=== PATIENT | female | born 1985 | race Caucasian/White ===

== ENCOUNTER 2021-10-18 06:55 | Emergency (ER) | payer OTHER, SELFPAY ==
[2021-10-18 07:00] VITALS: BP 119/97; PULSE 86; RESP 18; TEMP 36.2; O2SAT 100; BMI 33.4
--- NOTE | 2021-10-18 07:20 | EKG12_ITS ---
Test Reason : SYNCOPE Blood Pressure : / mmHG Vent. Rate : 081 BPM Atrial Rate : 081 BPM P-R Int : 160 ms QRS Dur : 084 ms QT Int : 378 ms P-R-T Axes : 008 018 009 degrees QTc Int : 439 ms Normal sinus rhythm Normal ECG Confirmed by KAIDEN BOOTH MD ([id number]), editor book JUNIOR ACOSTA ([id number]) on 10/22/2021 10:59:57 AM Referred By: TL Confirmed By:KAIDEN BOOTH MD
--- NOTE | 2021-10-18 07:20 | CT_ITS ---
STUDY: CT BRAIN WITHOUT CONTRAST REASON FOR EXAM: Female, 36 years old. Head injury following a syncopal episode. RADIATION DOSAGE (If Supplied By Facility): CTDIvol = ( 44.99 ) mGy, DLP = ( 745.49 ) mGycm TECHNIQUE: Transaxial CT imaging of the brain was performed without administration of intravenous contrast material. Individualized dose optimization techniques were used for this CT. COMPARISON: No relevant priors. FINDINGS: Normal soft tissue structures. There is a small scalp hematoma overlying the right frontal Normal size ventricles and extra-axial spaces for the patient''s age. Normal white matter tracts of the cerebral hemispheres. Normal basal ganglia and thalami. Normal brainstem. Normal cerebellum. There is no intracranial hemorrhage. There are no findings of an acute ischemic infarction. Normal visualized paranasal sinuses. CT/Brain/Head without Contrast IMPRESSION: Normal unenhanced CT scan of the brain. Small scalp hematoma overlying the right frontal frontal bone. Electronically Signed: Billy Sharma MD at 8:06 EDT ,
--- NOTE | 2021-10-18 07:21 | EX.ED.DYSGE1 ---
HPI History of Present Illness Chief Complaint: Syncope Narrative Narrative: 36-year-old female with no significant medical history presenting with an episode of syncope. The patient states that last night she went out to eat and had a quesadilla. She woke up early this morning feeling like she was going to have diarrhea. She states she had some sharp pain in her abdomen. When she got up she felt lightheaded like she was going to faint. On her way to the bathroom she fainted. She states she hit her head on the door she believes. She is unsure how long she was unconscious but called her and he came to assist her. After that she had diarrhea and her abdominal pain resolved. She currently does not have any abdominal pain. She is not nauseous. She states she feels like she might of fallen on her chest and has some vague chest pain. It is not sharp or pleuritic in nature. It does not feel like pressure. It does not hurt worse with deep inspiration. She did not have chest pain prior to the event. Patient does relate that she has a history of factor V Leiden with no history of DVT/PE. She does state that her brother has had 2 PEs and is on oral anticoagulation. She has no calf pain or swelling. Patient has not had fever, chills, nausea, vomiting. She has no body aches. No change in vision, paresthesias. She denies neck pain. She did not injure any extremities. Patient states that she had been eating and drinking normally and making normal urine and stool prior to the episode. [facility] Medical History Factor 5 Leiden mutation, heterozygous Home Medications ondansetron 4 mg PO Q8H PRN #10 tab 10/18/21 [Rx Last Taken Unknown] Allergy/AdvReac Type Severity Reaction Status Date / Time shrimp Allergy Anaphylaxis Uncoded 10/18/21 06:56 Surgical History History of Social History Smoking Status: Never smoker ROS ROS ED Constitutional Constitutional ED: Denies fever(s) or subjective Eyes Eyes: Denies blurry vision or change in vision ENT ENT ED: Denies rhinorrhea or sore throat Cardiovascular Cardiovascular: Reports chest pain; Denies palpitations or racing heartbeat Respiratory/Chest Respiratory/Chest: Denies cough or dyspnea Gastrointestinal Gastrointestinal: Reports abdominal pain and diarrhea; Denies nausea or vomiting Genitourinary Genitourinary ED: Denies dysuria or hematuria Musculoskeletal Musculoskeletal: Denies arthralgias or myalgias Integumentary Denies rash Neurologic Neurologic: Denies headache(s) or paresthesias Psychiatric Psychiatric: Denies anxiety or depression EXAM Physical Exam Const Vital Signs: 10/18/21 07:00 10/18/21 07:04 10/18/21 07:42 Temperature 97.1 F L Temperature Source Temporal Pulse Rate 86 Respiratory Rate 18 Respiratory Pattern Normal Blood Pressure 119/97 H Blood Pressure Mean 104 Pulse Ox 100 98 Oxygen Delivery Method Room Air Room Air Positive well nourished General Appearance ED: NAD; Negative for pallor HEENT HEENT Narrative: Cephalohematoma on the right forehead. No skull deformity. No raccoon eyes or perry signs. trauma Eyes PERRL and EOMs intact bilaterally General Eye ED: Negative for pale conjunctiva or scleral icterus Neck supple General: Negative for tenderness Resp normal respiratory effort and clear to auscultation bilaterally Cardio regular rate and regular rhythm Neuro oriented x3 and CN's II-XII intact bilaterally Sensorium / Orientation: alert Psych mental status grossly normal Skin General Skin Exam: Negative for jaundice or pallor MDM MDM MDM Narrative Medical decision making narrative: Patient presenting with an episode of syncope. She has a cephalhematoma and was unconscious for probably less than a minute. She does have some vague chest discomfort and a history of factor V Leiden. No history of DVT/PE. Currently she just feels fatigued. I obtained an EKG and on my interpretation there is a normal sinus rhythm with a ventricular rate of 81 bpm without sign of ischemic change or dysrhythmia. CBC shows a white blood cell count 9.0, hemoglobin 14.2, hematocrit 40.5, platelets 210. BMP shows a GFR of 65, creatinine 1.02, electrolytes are within normal limits with exception of a potassium of 3.4. Serum test is negative. High-sensitivity troponin is less than 3. D-dimer was elevated at 0.52. CTA of the chest was performed and is negative for PE or dissection. There is no other acute process. CT of the brain is negative. Chest x-ray on my interpretation shows no acute cardiopulmonary process and radiologist agree. I did want to perform orthostatic vital signs however the patient got up and walked to the bathroom and she states that she felt normal at her baseline. For this reason I did not perform them. Patient is now saying she has a little bit of nausea and some slight brain fog. I suspect she might have a mild concussion from her fall with her head injury and she does have a hematoma on her scalp. I did discuss at length return precautions with she and her . I feel she is safe for discharge at this time. I do believe she likely had a vagal episode with the diarrhea and abdominal pain. Impression: 1 syncope 2. Cephalhematoma 3. Mild concussion 4. Chest pain noncardiac Lab Data Attestation: I reviewed the patient's lab results. Labs: Laboratory Results - last 24 hr 10/18/21 10/18/21 10/18/21 07:20 07:20 07:20 WBC 9.0 RBC 4.71 Hgb 14.2 Hct 42.5 MCV 90.2 MCH 30.1 MCHC 33.4 RDW Std Deviation 40.0 RDW Coeff of Arti 12.1 Plt Count 210 MPV 10.9 Immature Gran % (Auto) 0.400 Neut % (Auto) 68.8 Lymph % (Auto) 22.7 [place] % (Auto) 6.3 Eos % (Auto) 1.4 Baso % (Auto) 0.4 Absolute Neuts (auto) 6.2 Absolute Lymphs (auto) 2.05 Nucleated RBC % 0 D-Dimer Quant (PE/DVT) Sodium 138 Potassium 3.4 L Chloride 106 Carbon Dioxide 26.0 Anion Gap 6 BUN 21 H Creatinine 1.02 Estim Creat Clear Calc 56.98 Est GFR (MDRD) Af Amer 78 Est GFR (MDRD) Non-Af 65 BUN/Creatinine Ratio 20.6 H Glucose 109 H Calcium 9.2 Troponin I High Sens < 3 L Serum , Qual NEGATIVE 10/18/21 07:30 WBC RBC Hgb Hct MCV MCH MCHC RDW Std Deviation RDW Coeff of Arti Plt Count MPV Immature Gran % (Auto) Neut % (Auto) Lymph % (Auto) [place] % (Auto) Eos % (Auto) Baso % (Auto) Absolute Neuts (auto) Absolute Lymphs (auto) Nucleated RBC % D-Dimer Quant (PE/DVT) 0.52 H* Sodium Potassium Chloride Carbon Dioxide Anion Gap BUN Creatinine Estim Creat Clear Calc Est GFR (MDRD) Af Amer Est GFR (MDRD) Non-Af BUN/Creatinine Ratio Glucose Calcium Troponin I High Sens Serum , Qual Radiography Diagnostic Testing: Clinical Impression(s) from Imaging Studies Brain CT 10/18/21 07:20 IMPRESSION: Normal unenhanced CT scan of the brain. Small scalp hematoma overlying the right frontal frontal bone. Electronically Signed: Billy Sharma MD at 8:06 EDT , Chest X-Ray 10/18/21 07:50 IMPRESSION: Normal x-ray examination of the chest. Electronically Signed: Billy Sharma MD at 8:09 EDT , Chest CTA 10/18/21 07:53 IMPRESSION: Normal CTA chest examination, without a demonstrated pulmonary embolism or arterial dissection. Electronically Signed: Billy Sharma MD at 8:27 EDT , Discharge Plan Triage Chief Complaint: Syncope ED Provider: George Robledo Dx/Rx/DC Orders Instructions: ED Concussion, ED Fainting, Vagal Reaction Prescriptions: New ondansetron 4 mg tablet,disintegrating 4 mg PO Q8H PRN (Reason: nausea and vomiting) Qty: 10 RF: 0 Primary Care Provider: Jairo Skinner Referrals: Jairo Skinner MD [Primary Care Provider] - Disposition Disposition: Home, Self Care
[2021-10-18 07:33] LABS: Absolute Lymphocyte Count 2.05 X10^3/uL (0.83-4.51); Absolute Neutrophil Count 6.2 X10^3/uL (2.0-7.7); Basophil# 0.04 X10^3/uL; Basophil% 0.4 % (0-1); Eosinophil# 0.13 X10^3/uL; Eosinophils% 1.4 % (0-5); Hematocrit 42.5 % (37-47); Hemoglobin 14.2 g/dL (12.0-15.0); Lymphocyte # 2.05 X10^3/ul (0.83-4.51); Lymphocyte % 22.7 % (19-41); Mean Corp Hgb Conc 33.4 g/dL (32-36); Mean Corpuscular Hgb 30.1 pg (27.0-32.0); Mean Corpuscular Volume 90.2 fL (81-99); Mean Platelet Vol. 10.9 fl (6.2-12.0); Monocyte# 0.57 X10^3/uL; Monocyte% 6.3 % (0-10); NRBC Flagged by Analyzer 0 % (0-5); Neutrophil # 6.19 X10^3/uL (2.7-7.7); Neutrophil % 68.8 % (47-70); Platelet Count 210 K/mm3 (150-450); RBC Distribution Width CV 12.1 % (11.6-14.6); Red Blood Count 4.71 M/mm3 (4.2-5.4)
[2021-10-18 07:42] VITALS: O2SAT 98
[2021-10-18 07:42] LABS: Internal QC Validated? YES +Cl - CLEAR BKGD; Pregnancy, Serum, hCG Quali. NEGATIVE Negative
[2021-10-18 07:50] LABS: Anion Gap 6 (5-15); BUN 21 mg/dL (7-18); BUN/Creat Ratio 20.6 RATIO (10-20); Calcium,Total 9.2 mg/dL (8.5-10.1); Chloride 106 mmol/L (98-107); Creatinine, Serum 1.02 mg/dL (0.55-1.02); EST Glomerular Filtration Rate 65 mL/min (>60); Est Glom Filt Rate - Afr Amer 78 mL/min (>60); Estimated Creatinine Clearance 56.98 ml/min; Glucose 109 mg/dL (74-106); Potassium 3.4 mmol/L (3.5-5.1); Sodium Level 138 mmol/L (136-145); Troponin-I HS < 3 pg/mL (3.0-54.0)
--- NOTE | 2021-10-18 07:50 | RAD_ITS ---
STUDY: X-RAY CHEST REASON FOR EXAM: Female, 36 years old. Chest pain TECHNIQUE: Single AP portable view of the chest. COMPARISON: None. FINDINGS: EKG electrodes are seen. The lungs are clear and expanded. There is no demonstrated pleural abnormality. Normal size heart. Normal mediastinum and leia. Normal visualized pulmonary arteries. Normal visualized aortic arch and descending thoracic aorta. Normal visualized thoracic spine. Normal visualized ribs, clavicles, and shoulders. There is no demonstrated abnormality of the visualized soft tissue structures of the upper abdomen. RAD/Chest 1 View (Portable) IMPRESSION: Normal x-ray examination of the chest. Electronically Signed: Billy Sharma MD at 8:09 EDT ,
[2021-10-18 07:51] LABS: D-Dimer Quantitative (DVT/PE) 0.52 FEU/ug/m (0.27-0.49)
--- NOTE | 2021-10-18 07:53 | CT_ITS ---
STUDY: CTA CHEST REASON FOR EXAM: Female, 36 years old. Chest pain RADIATION DOSAGE (If Supplied By Facility): CTDIvol = ( 8.43 ) mGy, DLP = ( 394.98 ) mGycm TECHNIQUE: The examination was performed with the intravenous administration of IV 100mL Isovue-370. Post-processing of the angiographic images was performed, with multiplanar reformation and 3D reconstruction. Individualized dose optimization techniques were used for this CT. COMPARISON: None. FINDINGS: Normal enhancement of the main pulmonary artery and right and left pulmonary arteries. Normal enhancement of the bilateral peripheral pulmonary arteries. There is no demonstrated pulmonary embolism. Normal thoracic aorta and visualized great vessels. There is no demonstrated aortic dissection. Normal heart and pericardium. Normal mediastinum. Normal hilar regions. Normal visualized trachea and bronchi. The lungs are well expanded. Normal pulmonary parenchyma. Normal pleura. Normal chest wall structures. Normal osseous structures. Normal visualized upper abdomen. CT/CTA Chest W/WO Contrast IMPRESSION: Normal CTA chest examination, without a demonstrated pulmonary embolism or arterial dissection. Electronically Signed: Billy Sharma MD at 8:27 EDT ,
[2021-10-18 09:40] VITALS: BP 117/85; PULSE 80; RESP 16; O2SAT 98
== END 2021-10-18 09:40 | disposition home or self-care (01) ==
PROVIDERS: Emergency Provider Student in an Organized Health Care Education/Training Program; PCP Family Medicine; Visit Provider Student in an Organized Health Care Education/Training Program
DX: S06.0X9A Concussion with loss of consciousness of unspecified duration, initial encounter (principal); D68.51 Activated protein C resistance; S00.03XA Contusion of scalp, initial encounter; Y93.9 Activity, unspecified; W19.XXXA Unspecified fall, initial encounter; Y92.9 Unspecified place or not applicable; R07.89 Other chest pain
CPT/HCPCS: 70450; 71045; 71275; 80048; 84484; 84703; 85025; 85379; 93005; 99285; Q9967; A4216

== ENCOUNTER 2022-07-02 08:30 | Inpatient (IN) | payer OTHER, SELFPAY ==
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
[2022-07-02] VITALS (19 sets, daily range): BP systolic 101–140; BP diastolic 62–93; PULSE 107–131; RESP 16–20; TEMP 36.6–37.4; O2SAT 95–99; BMI 41.2
[2022-07-02] MEDS: LACTATED RINGERS 500 ML 999 ML IV (09:20)
[2022-07-02 09:54] LABS: Absolute Lymphocyte Count 1.11 X10^3/uL (0.83-4.51); Absolute Neutrophil Count 7.2 X10^3/uL (2.0-7.7); Basophil# 0.03 X10^3/uL; Basophil% 0.3 % (0-1); Eosinophil# 0.05 X10^3/uL; Eosinophils% 0.6 % (0-5); Hematocrit 39.5 % (37-47); Lymphocyte # 1.11 X10^3/ul (0.83-4.51); Lymphocyte % 12.3 % (19-41); Mean Corp Hgb Conc 32.9 g/dL (32-36); Mean Corpuscular Hgb 29.5 pg (27.0-32.0); Mean Corpuscular Volume 89.6 fL (81-99); Mean Platelet Vol. 12.1 fl (6.2-12.0); Monocyte# 0.55 X10^3/uL; Monocyte% 6.1 % (0-10); NRBC Flagged by Analyzer 0 % (0-5); Neutrophil # 7.19 X10^3/uL (2.7-7.7); Neutrophil % 79.7 % (47-70); Platelet Count 157 K/mm3 (150-450); RBC Distribution Width CV 13.8 % (11.6-14.6); RBC Distribution Width SD 44.9 fl (35.1-43.9); Red Blood Count 4.41 M/mm3 (4.2-5.4)
[2022-07-02] MEDS: Lactated Ringers 1,000 ML 150 ML IV (10:19)
[2022-07-02 11:06] LABS: Protein, Urine (Random) 50.7 mg/dL (<11.9); Protein:Creat Ratio 1065 mg/g CRE (0-200)
[2022-07-02 11:20] LABS: AST(SGOT) 17 U/L (15-37); Alanine Aminotransfer ALT/SGPT 18 U/L (13-56); Creatinine, Serum 0.57 mg/dL (0.55-1.02); EST Glomerular Filtration Rate 126 mL/min (>60); Est Glom Filt Rate - Afr Amer 153 mL/min (>60); Estimated Creatinine Clearance 101.97 ml/min; Uric Acid 5.1 mg/dL (2.6-6.0)
[2022-07-02] MEDS: Cefazolin 2 GM in 0.9% Normal Saline 100 ML IV (11:48)
[2022-07-02] MEDS: Sodium Citrate/Citric Acid 30 ML UDC PO (11:48)
[2022-07-02] MEDS: Acetaminophen 500 MG Tablet 1000 MG PO ×2 (11:48→18:36)
--- NOTE | 2022-07-02 13:08 | EX.PCM.OBRPT ---
Assessment & Plan (1) Advanced maternal age (AMA) in : (2) Gestational diabetes, diet controlled: (3) Previous delivery affecting : (4) 39 weeks gestation of : (5) Preeclampsia: Maternal Data Information Final ELIZA: 07/07/22 Gestational age: 39 2/7 Details Operative Information Date of Procedure: 07/02/22 Pre-Operative Diagnosis: 39 weeks, preeclampsia without severe features, previous c/s, adv maternal age Post-Operative Diagnosis: same Indications for : Repeat Elective Classification: Scheduled Procedure Type: low transverse plate drying machine tender #2: Yanci Garcia m3 Type of Anesthesia: Spinal Anesthesiologist: Aleksander Hammond Special Medications: duramorph Antibiotic Given: Ancef 2 grams IV x1 Drain: Shore to straight drain Estimated Blood Loss: 800 Fluids Replaced: 1200 Procedure Start Time: 12:33 Procedure Stop Time: 13:16 Time of Delivery: 12:36 Findings Description of Procedure: The patient was taken to the operating room. She was prepped and draped in the dorsal supine position with a leftward tilt. A Pfannenstiel skin incision was made approximately 2 cm above the symphysis pubis and carried through to underlying layer fascia with the scalpel. The fascia was incised incised in the midline and extended laterally with the Mora scissors. The rectus muscles were in the midline and the peritoneum was entered bluntly. The peritoneal incision was stretched and the bladder blade was placed. The uterine incision was made in a low transverse fashion with the scalpel and extended superiorly and inferiorly with blunt dissection. The amniotic membranes were ruptured bluntly and clear amniotic fluid returned. The 's head was brought to the incision in the flexed position and delivered without difficulty. The remainder of the infant was delivered with gentle traction and fundal pressure in the standard fashion. The mouth and nares were bulb suctioned. The cord was clamped and cut as the infant was stimulated. Cord clamping was delayed approximately 30 seconds while the infant was stimulated and dried. The was handed off to the waiting nursing staff. The placenta was delivered with fundal massage and gentle traction in the standard fashion. The uterus was exteriorized and cleared of all clots and debris. The cervix was dilated with a ring forcep. The uterine incision was closed with #1 Vicryl in a running locked fashion. A second layer of the same suture was used in an imbricating fashion to obtain hemostasis. The incision was examined and was found to be hemostatic. The uterus was placed back into the peritoneal cavity and hemostasis was again confirmed. The rectus muscles were examined and any bleeding was Bovie cauterized. The parietal peritoneum and rectus muscles were closed en bloc with an 0 Vicryl running suture. The surgical teams outer gloves were then changed. The rectus fascia was examined and any bleeding was Bovie cauterized and the rectus fascia was closed with 1 Vicryl suture in a running standard fashion. The subcutaneous tissue was examining and any bleeding was Bovie cauterized. The subcutaneous tissue was reapproximated with 3-0 Vicryl suture. The skin was closed in a subcuticular fashion by the [employer] with me present in the labor and delivery suite. I performed the remainder of the procedure with assistance. All sponge, lap, and needle counts were correct. The patient was taken to her room for recovery in a stable condition. Presentation: Positive for Vertex Amniotic Membrane Rupture Type: Artificial Amniotic Fluid Description: Clear Placental Delivery Description: Expressed Placenta Disposition: [facility] Specimen(s) Sent to Pathology: none Cord Vessel Description: 3 Vessels Cord Entanglement: None A Gender: Male (Moo 8lb 7 oz) (1 minute): 8 (5 minute): 9 Delayed Cord Clamping: Yes Complications Complications: none
[2022-07-02] MEDS: Oxytocin 15 Units/NS 250ml 15 UNITS/250 ML IV.SOLN 83 UNITS IV (13:45)
[2022-07-02] MEDS: 0.9% Saline Lock 10 ML Syringe IV (14:28)
[2022-07-02] MEDS: Ketorolac 30 MG/ML Syringe IV ×2 (14:28→20:18)
[2022-07-02] MEDS: Lactated Ringers 1,000 ML 100 ML IV (16:50)
--- NOTE | 2022-07-02 18:26 | NURSING ---
updated Dr. Martin on patient tachycardia. Reviewed all VS pre and post op, EBL 800. Pt asymptomatic other than tachycardia. Urine output starting to increase since surgery and urine is becoming more yellow and less concentrated. Order received to bolus 500cc of LR and see how patient does when she gets up for the first time.
--- NOTE | 2022-07-02 23:48 | NURSING ---
Pt ambulated from bed to chair at 2014 and denied any dizziness, light-headedness or other sx. Pt's heart rate maintained 120's-130's during this time. Once in chair, pt's heart rate went to 110-120 and maintained this range. This RN advised pt to call for any new sx or concerns. Pt voiced understanding. Will continue to monitor.
--- NOTE | 2022-07-02 23:55 | NURSING ---
At 2215 pt reported feeling a small gush of blood coming out of vagina. This RN palpated pt's fundus, which was firm and -1. With palpation, a small clot and a small amount of blood was expelled. Pt had just finished feeding x 50 minutes and reported that she was feeling uterine cramps during that time. This RN assisted pt back to bed and did another fundal check. Fundus was still firm, -1, and no additional blood or clots were expelled. Pt denied any new sx and pt's heart rate was 108 at this time. Reviewed s/sx to monitor for and reasons to call this RN. Pt voiced understanding.
[2022-07-03] VITALS (10 sets, daily range): BP systolic 100–113; BP diastolic 69–77; PULSE 99–114; RESP 16–18; TEMP 36.6–37.2; O2SAT 95–98
[2022-07-03] MEDS: Acetaminophen 500 MG Tablet 1000 MG PO ×4 (00:49→19:29)
[2022-07-03] MEDS: Enoxaparin 40 MG/0.4 ML Syringe SC ×2 (00:49→13:12)
[2022-07-03] MEDS: Ketorolac 30 MG/ML Syringe IV ×2 (03:01→09:02)
[2022-07-03] MEDS: 0.9% Saline Lock 10 ML Syringe IV ×2 (03:01→09:00)
[2022-07-03 05:51] LABS: Hematocrit 34.7 % (37-47); Mean Corp Hgb Conc 31.7 g/dL (32-36); Mean Corpuscular Hgb 29.1 pg (27.0-32.0); Mean Corpuscular Volume 91.8 fL (81-99); Mean Platelet Vol. 11.1 fl (6.2-12.0); Platelet Count 130 K/mm3 (150-450); RBC Distribution Width SD 47.1 fl (35.1-43.9); Red Blood Count 3.78 M/mm3 (4.2-5.4); White Blood Count 7.4 K/mm3 (4.4-11.0)
[2022-07-03] MEDS: Senna/Docusate Sodium 1 Tablet PO (09:00)
--- NOTE | 2022-07-03 10:13 | PCM.PN.OB ---
Subjective Subjective Pain well controlled. Average lochia. No nausea or vomiting. Tolerating regular diet. Objective Data Objective Data Vital Signs: Vital Signs Temp Pulse Resp BP Pulse Ox O2 Del Method 98.2 F 99 16 100/73 97 Room Air 07/03/22 08:33 07/03/22 08:33 07/03/22 08:33 07/03/22 08:33 07/03/22 08:33 07/03/22 08:33 Oxygen Delivery Method Room Air Weight: 99 kg Body Mass Index (BMI) 41.2 Intake & Output: Intake and Output for Last 24 Hours 07/01/22 07/02/22 07/03/22 23:59 23:59 23:59 Intake Total 3859.50 / 3859.50 Output Total 2700 / 2700 1600 / 1600 Balance 1159.50 / 1159.50 -1600 / -1600 Lab / Micro Data Result Diagrams: 07/03/22 05:40 07/02/22 09:20 Labs: Laboratory Results - last 24 hr 07/02/22 09:20: Blood Type A POSITIVE, Antibody Screen NEGATIVE 07/02/22 09:20: Creatinine 0.57, Estim Creat Clear Calc 101.97, Est GFR (MDRD) Af Amer 153, Est GFR (MDRD) Non-Af 126, Uric Acid 5.1, AST 17, ALT 18 07/02/22 10:30: U Random Total Protein 50.7 H, Urine Creatinine 47.60, Protein/Creatinin Ratio 1065 H 07/03/22 05:40: WBC 7.4, RBC 3.78 L, Hgb 11.0 L, Hct 34.7 L, MCV 91.8, MCH 29.1, MCHC 31.7 L, RDW Std Deviation 47.1 H, RDW Coeff of Arti 14.0, Plt Count 130 L, MPV 11.1 Physical Exam Const alert General Appearance: cooperative GI GI Narrative: soft, moderate distention, fundus firm, appropriately tender. Abdominal bandage clean dry and intact Assessment & Plan (1) Preeclampsia: PLAN: 36-year-old female postop day #1 status post repeat section. There was a charting error did not have gestational diabetes. She did have preeclampsia without severe features. Blood pressures are stable. Platelets are stable. Will monitor until tomorrow. If patient is doing well can discharge home tomorrow. is breast-feeding and doing well. Blood count is appropriate for blood loss during surgery. (2) Advanced maternal age (AMA) in : (3) Previous delivery affecting :
[2022-07-03] MEDS: Ibuprofen 600 MG Tablet PO (15:15)
--- NOTE | 2022-07-03 18:22 | NURSING ---
Reviewed and agreed with Eleazar ZUNIGA charting.
[2022-07-04] MEDS: Ibuprofen 600 MG Tablet PO ×2 (00:32→06:38)
[2022-07-04] MEDS: Acetaminophen 500 MG Tablet 1000 MG PO ×2 (01:36→08:18)
[2022-07-04] MEDS: Enoxaparin 40 MG/0.4 ML Syringe SC ×2 (01:36→11:02)
[2022-07-04 01:45] VITALS: BP 115/75; PULSE 102; RESP 17; TEMP 37.1
[2022-07-04 08:20] VITALS: BP 107/74; PULSE 98; RESP 16; TEMP 36.5; O2SAT 98
--- NOTE | 2022-07-04 09:16 | PCM.PN.OB ---
Subjective Subjective Denies complaints Objective Data Objective Data Vital Signs: Vital Signs Temp Pulse Resp BP Pulse Ox O2 Del Method 97.7 F L 98 16 107/74 98 Room Air 07/04/22 08:20 07/04/22 08:20 07/04/22 08:20 07/04/22 08:20 07/04/22 08:20 07/04/22 08:20 Oxygen Delivery Method Room Air Weight: 218 lb 4.122 oz Body Mass Index (BMI) 41.2 Intake & Output: Intake and Output for Last 24 Hours 07/02/22 07/03/22 07/04/22 23:59 23:59 23:59 Intake Total 3859.50 / 3859.50 Output Total 2700 / 2700 2400 / 2400 Balance 1159.50 / 1159.50 -2400 / -2400 Lab / Micro Data Result Diagrams: 07/03/22 05:40 07/02/22 09:20 Physical Exam Const alert, oriented x3 and no apparent distress HEENT normocephalic GI soft to palpation, non-tender and non-distended GI Narrative: fundus firm, mid & below umbilicus Extremity normal to inspection and no calf tenderness Assessment & Plan (1) Advanced maternal age (AMA) in : COMMENT: POD#2 (2) Previous delivery affecting : PLAN: Plan Plan for d/c home today Mild preeclampsia - BP's normal
--- NOTE | 2022-07-04 09:17 | DCINST_ITS ---
Discharge Instructions Diet Discharge Diet: No restrictions Activity Discharge Activity: May Shower May resume sexual activity in: 6 weeks Weight Bearing Status: Weight bearing as tolerated Dressing / Incision Call your doctor if your incision/area has: Continuous Slow Oozing, Sudden Increased Bleeding, Increased Pain/ Swelling, Increased Redness, Foul Smelling Discharge and Swelling at the incision site Call your doctor if you observe: Fever of 101 or Higher, Coldness, Increased Pain, Change in Color, Inability to urinate, Inability to have a bowel movement, Using more than 1 pad per hour, Shortness of breath, Dizziness, Fainting spells, Chest pain, Increased palpitations (irregular heartbeat), Calf discomfort and Uncontrolled pain Suture Line Care: Avoid Pulling/Pushing and Avoid Pinching/Bending Remove Dressing in: 1 week Cleanse incision/area with: Soap & Water Follow Up Care Please Follow Up With: Matilde Cuellar MD When: Follow up in 2 and 6 weeks for visits. Test Results: Test results from this visit will be discussed in further detail at your follow- up appointment, if applicable. Discharge Plan Admission Admit Date/Time: 07/02/22 08:30 Primary Reason for Your Visit: Attending Provider: Matilde Cuellar Primary Care Provider: Jairo Skinner Discharge Orders/Prescriptions Prescriptions: New acetaminophen 500 mg Tablet 1,000 mg PO Q6 Qty: 0 0RF ibuprofen 600 mg Tablet 600 mg PO Q6H Qty: 0 0RF Continued albuterol 90 mcg/actuation Aerosol 2 mcg INHALATION Q4H PRN (Reason: difficulty breathing) Rx Instructions: 2 puffs as needed PNV comb no.58-iron bisgly-FA 10-400 mg-mcg Capsule 2 cap PO DAILY Referrals / Follow Up: Jairo Skinner MD [Primary Care Provider] - Disposition Disposition (needs filled in before D/C Order can be placed): Home, Self Care
[2022-07-04] MEDS: Senna/Docusate Sodium 1 Tablet PO (10:19)
== END 2022-07-04 11:18 | disposition home or self-care (01) | DRG 788 ==
PROVIDERS: Admitting Provider Obstetrics & Gynecology; PCP Family Medicine; Visit Provider Obstetrics & Gynecology
PROC: 10D00Z1 Extraction of Products of Conception, Low, Open Approach (ICD-10-PCS; CPT 59514; principal; 2022-07-02 11:45)
DX: O34.211 Maternal care for low transverse scar from previous cesarean delivery (principal); O24.420 Gestational diabetes mellitus in childbirth, diet controlled; O14.05 Mild to moderate pre-eclampsia, complicating the puerperium; Z3A.39 39 weeks gestation of pregnancy; Z37.0 Single live birth
CPT/HCPCS: 59025; 59050; 82565; 82570; 84156; 84450; 84460; 84550; 85025; 85027; 86850; 86900; 86901; 99218; 99251; J7120; A4216; G0378; G0463

== ENCOUNTER 2022-07-07 05:56 | Emergency (ER) | payer OTHER, SELFPAY ==
[2022-07-07 05:58] VITALS: BP 117/93; PULSE 98; RESP 20; TEMP 37.2; O2SAT 98; BMI 41.5
--- NOTE | 2022-07-07 06:02 | EKG12_ITS ---
Test Reason : htn Blood Pressure : / mmHG Vent. Rate : 095 BPM Atrial Rate : 095 BPM P-R Int : 146 ms QRS Dur : 074 ms QT Int : 330 ms P-R-T Axes : 036 046 010 degrees QTc Int : 414 ms Normal sinus rhythm Normal ECG Confirmed by JULIO BISWAS, ILDEFONSO ([id number]), editorial project manager JUNIOR ACOSTA ([id number]) on 07/09/2022 11:05:43 AM Referred By: Bb Confirmed By:ILDEFONSO KIM MD
[2022-07-07 06:04] VITALS: BP 118/80; PULSE 99; RESP 20; O2SAT 98
--- NOTE | 2022-07-07 06:07 | EX.ED.DYSGE1 ---
HPI History of Present Illness Chief Complaint: Hypertension Informant: patient and EMS Onset/Context/Timing Onset: Today Context: - (Awoke not feeling well) Timing: Continuous Location: Generalized Current Severity: Mild Maximum Severity: Moderate Worsened by: Nothing Relieved by: Nothing in particular Associated Symptoms Associated Symptoms: Swelling in legs Narrative Narrative: Patient had a planned delivery 4-5 days ago, she has had swelling in both of her legs for the last month or 2, her doctor has been watching her blood pressure but she had not required any medications for it, nor been diagnosed with preeclampsia. She has been taking ibuprofen fairly regularly, she states she has a history of factor V Leiden and is usually on enoxaparin. She does not take any antiplatelets. She felt poorly when she woke up this morning, so she took her blood pressure with her home wrist cuff and her systolic was 192. Family brought her via EMS. She states she did not feel well but she is feeling a little better now. She had no headache. No focal neurologic symptoms or vision trouble or diplopia. She states she did have some chest pressure that lasted maybe 30 minutes but it is gone now, she took no medications prior to coming here this morning. She has not yet called her OB, she states she sees Dr. Matilde Cuellar. [facility] Medical History Anxiety Asthma Depression Factor 5 Leiden mutation, heterozygous hemorrhage Subchorionic hematoma in first trimester Home Medications albuterol 90 mcg/actuation aerosol inhaler 2 mcg inhalation Q4H PRN difficulty breathing 07/02/22 [History Last Taken 07/01/22 23:30] acetaminophen 500 mg tablet 1,000 mg PO Q6 #0 tabs 07/04/22 [Rx Last Taken Unknown] enoxaparin 40 mg/0.4 mL subcutaneous syringe 0.4 mg subcut BID 07/07/22 [History Last Taken Unknown] Allergy/AdvReac Type Severity Reaction Status Date / Time shrimp Allergy Anaphylaxis Verified 07/02/22 09:23 Surgical History (Updated 06/26/22 @ 10:[address] Matilde Cuellar MD) History of Social History Smoking Status: Never smoker ROS ROS ED Constitutional Constitutional ED: Reports malaise; Denies chills or fever(s) Eyes Eyes: Denies change in vision or diplopia ENT ENT ED: Denies rhinorrhea or sore throat Cardiovascular Cardiovascular: Reports chest pain and leg edema; Denies palpitations Respiratory/Chest Respiratory/Chest: Denies cough or dyspnea Gastrointestinal Gastrointestinal: Denies abdominal pain, diarrhea, nausea or vomiting Genitourinary Genitourinary ED: Denies dysuria or hematuria Musculoskeletal Musculoskeletal: Denies back pain or neck pain Integumentary Denies abscess or rash Neurologic Neurologic: Denies headache(s), paresthesias or weakness Psychiatric Psychiatric: Denies anxiety or suicidal thoughts EXAM Physical Exam Const Vital Signs: 07/07/22 05:58 07/07/22 06:04 07/07/22 06:33 Temperature 99 F Temperature Source Temporal Pulse Rate 98 99 93 Respiratory Rate 20 H 20 H 16 Blood Pressure 117/93 H 118/80 128/85 H Blood Pressure Mean 101 92 99 Pulse Ox 98 98 98 Oxygen Delivery Method Room Air Room Air Room Air 07/07/22 06:58 Temperature Temperature Source Pulse Rate 105 H Respiratory Rate 16 Blood Pressure 133/87 H Blood Pressure Mean 102 Pulse Ox 95 Oxygen Delivery Method Room Air Positive well nourished and well developed General Appearance ED: well developed and NAD HEENT Reports moist mucous membranes normocephalic and atraumatic Eyes PERRL and EOMs intact bilaterally Neck full ROM and supple Resp normal respiratory effort and clear to auscultation bilaterally Cardio regular rate, regular rhythm and no murmurs Rate: Negative for tachycardic GI non-tender and non-distended Auscultation: normoactive bowel sounds Palpation: soft Back/Spine no CVA tenderness General Back: other FROM Extremity normal to inspection General Extremety ED: Negative for edema, pulses abnormal or tenderness General Extremity: Negative for edema or pulses abnormal Neuro oriented x3, CN's II-XII intact bilaterally and no sensory deficits noted Sensorium / Orientation: awake and alert Motor Exam: strength 5/5 throughout Skin no rashes or lesions noted and no wounds MDM MDM MDM Narrative Medical decision making narrative: Prehospital EKG was sent and evaluated by myself prior to the patient's arrival and is normal. Our EKG here on my interpretation also normal. Patient's initial blood pressure is 117/93, we repeated it, 118/80. Unclear if the patient's cuff was inaccurate or if her blood pressure truly was that high and came down for unknown reasons. Preeclampsia work-up is ordered/obtained. Her work-up is essentially negative/normal except for very slight elevations of AST and ALT. There is no proteinuria. Her repeat blood pressure is 128/85 and then 133/87. Spot prot:Cr urine is obtained, but not able to be performed since she basically has no proteinuria; this is a big change compared with 5 days ago when her urine protein levels were over 50 and her ratio was over 1000. She is ambulatory and feeling well. She prefers to go home. Discussed with Dr. Cobb who knows the patient and is in agreement with this, she has an appointment tomorrow and will follow-up as scheduled with Dr. Cuellar. The patient confirms she is continuing her enoxaparin injections. Her chest discomfort may or may not have been cardiac, she is low risk for this and is not in acute congestive heart failure, and I do not think that she needs to be worked up for pulmonary embolus given the symptoms and the fact that she is anticoagulated. Her initial EKG and troponin are normal, the plan will be to discharge her home if her 2-hour repeat troponin does not show a significant bump. Discussed all this with her and her and they are comfortable with that plan. Lab Data Attestation: I reviewed the patient's lab results. Labs: Laboratory Results - last 24 hr 07/07/22 07/07/22 07/07/22 06:08 06:08 06:20 WBC 7.2 RBC 3.02 L Hgb 9.1 L Hct 27.6 L MCV 91.4 MCH 30.1 MCHC 33.0 RDW Std Deviation 46.8 H RDW Coeff of Arti 14.1 Plt Count 157 MPV 11.1 Immature Gran % (Auto) 1.900 H Neut % (Auto) 67.1 Lymph % (Auto) 22.1 [place] % (Auto) 6.5 Eos % (Auto) 2.1 Baso % (Auto) 0.3 Absolute Neuts (auto) 4.8 Absolute Lymphs (auto) 1.59 Nucleated RBC % 0 Sodium 140 Potassium 3.6 Chloride 108 H Carbon Dioxide 23.0 Anion Gap 9 BUN 11 Creatinine 0.64 Estim Creat Clear Calc 90.82 Est GFR (MDRD) Af Amer 133 Est GFR (MDRD) Non-Af 110 BUN/Creatinine Ratio 17.1 Glucose 100 Calcium 8.2 L Total Bilirubin 0.40 AST 66 H ALT 80 H Alkaline Phosphatase 75 Lactate Dehydrogenase 215 Troponin I High Sens 6 Total Protein 5.8 L Albumin 2.3 L Globulin 3.5 Albumin/Globulin Ratio 0.7 L Urine Color Yellow Urine Clarity Clear Urine pH 7.0 Ur Specific [place] 1.010 Urine Protein Negative Urine Glucose (UA) Normal Urine Ketones Negative Urine Occult Blood 250 H Urine Nitrite Negative Urine Bilirubin Negative Urine Urobilinogen Normal Ur Leukocyte Esterase 25 H Urine RBC 0-5 SEEN Urine WBC 0-5 SEEN Ur Squamous Epith Cells 0-5 SEEN Urine Bacteria RARE Urine Mucus 0 SEEN U Random Total Protein Urine Creatinine Protein/Creatinin Ratio 07/07/22 06:20 WBC RBC Hgb Hct MCV MCH MCHC RDW Std Deviation RDW Coeff of Arti Plt Count MPV Immature Gran % (Auto) Neut % (Auto) Lymph % (Auto) [place] % (Auto) Eos % (Auto) Baso % (Auto) Absolute Neuts (auto) Absolute Lymphs (auto) Nucleated RBC % Sodium Potassium Chloride Carbon Dioxide Anion Gap BUN Creatinine Estim Creat Clear Calc Est GFR (MDRD) Af Amer Est GFR (MDRD) Non-Af BUN/Creatinine Ratio Glucose Calcium Total Bilirubin AST ALT Alkaline Phosphatase Lactate Dehydrogenase Troponin I High Sens Total Protein Albumin Globulin Albumin/Globulin Ratio Urine Color Urine Clarity Urine pH Ur Specific [place] Urine Protein Urine Glucose (UA) Urine Ketones Urine Occult Blood Urine Nitrite Urine Bilirubin Urine Urobilinogen Ur Leukocyte Esterase Urine RBC Urine WBC Ur Squamous Epith Cells Urine Bacteria Urine Mucus U Random Total Protein 9.7 Urine Creatinine < 13.00 Protein/Creatinin Ratio TNP Rhythm Strip Rhythm Strip: Sinus Rhythm Rate: 90 Ectopy: None EKG Initial EKG: Attestation: I personally reviewed and interpreted this EKG as follows: Interpretation: Sinus Rhythm and No Acute Injury Pattern Comments: normal EKG Discharge Plan Triage Chief Complaint: Hypertension ED Provider: Jerome Davila Dx/Rx/DC Orders Clinical Impression: Unspecified hypertension, condition or complication, Episode of hypertension, edema, Chest pain of uncertain etiology Instructions: ED Chest Pain, Uncertain Cause Prescriptions: No Action albuterol 90 mcg/actuation Aerosol 2 mcg INHALATION Q4H PRN (Reason: difficulty breathing) Rx Instructions: 2 puffs as needed acetaminophen 500 mg Tablet 1,000 mg PO Q6 Qty: 0 0RF enoxaparin 40 mg/0.4 mL syringe 0.4 mg subcut BID Label Comments: INJECT 0.4ML UNDER THE SKIN EVERY 12 HOURS Primary Care Provider: Jairo Skinner Referrals: Matilde Cuellar MD [Med Staff - Active Staff] - Disposition Disposition: Home, Self Care
[2022-07-07 06:14] LABS: Absolute Lymphocyte Count 1.59 X10^3/uL (0.83-4.51); Absolute Neutrophil Count 4.8 X10^3/uL (2.0-7.7); Basophil# 0.02 X10^3/uL; Basophil% 0.3 % (0-1); Eosinophil# 0.15 X10^3/uL; Eosinophils% 2.1 % (0-5); Hematocrit 27.6 % (37-47); Hemoglobin 9.1 g/dL (12.0-15.0); Lymphocyte # 1.59 X10^3/ul (0.83-4.51); Lymphocyte % 22.1 % (19-41); Mean Corpuscular Hgb 30.1 pg (27.0-32.0); Mean Corpuscular Volume 91.4 fL (81-99); Mean Platelet Vol. 11.1 fl (6.2-12.0); Monocyte# 0.47 X10^3/uL; Monocyte% 6.5 % (0-10); NRBC Flagged by Analyzer 0 % (0-5); Neutrophil # 4.83 X10^3/uL (2.7-7.7); Neutrophil % 67.1 % (47-70); Platelet Count 157 K/mm3 (150-450); RBC Distribution Width CV 14.1 % (11.6-14.6); RBC Distribution Width SD 46.8 fl (35.1-43.9); Red Blood Count 3.02 M/mm3 (4.2-5.4); White Blood Count 7.2 K/mm3 (4.4-11.0)
[2022-07-07 06:26] LABS: Mucous, Urine 0 SEEN /hpf (<or=2+)
[2022-07-07 06:33] VITALS: BP 128/85; PULSE 93; RESP 16; O2SAT 98
[2022-07-07 06:35] LABS: Color, Urine Yellow (Yellow); Glucose, Dipstick Normal (Normal); Ketone-Dipstick Negative (Negative); Leukocyte Esterase-Dipstick 25 /ul (Negative); Nitrite-Dipstick Negative (Negative); Occult Blood-Urine 250 /ul (Negative); Protein-Dipstick Negative (Negative); Urine Bilirubin Dipstick Negative (Negative); Urine Clarity Clear (Clear); Urine Urobilinogen Normal (Normal)
[2022-07-07 06:35] LABS: ALB/GLOB Ratio 0.7 RATIO (0.9-2.4); AST(SGOT) 66 U/L (15-37); Alanine Aminotransfer ALT/SGPT 80 U/L (13-56); Albumin, Serum 2.3 g/dL (3.2-5.0); Alkaline Phosphatase 75 U/L (45-117); Anion Gap 9 (5-15); BUN 11 mg/dL (7-18); BUN/Creat Ratio 17.1 RATIO (10-20); Calcium,Total 8.2 mg/dL (8.5-10.1); Chloride 108 mmol/L (98-107); Creatinine, Serum 0.64 mg/dL (0.55-1.02); EST Glomerular Filtration Rate 110 mL/min (>60); Est Glom Filt Rate - Afr Amer 133 mL/min (>60); Estimated Creatinine Clearance 90.82 ml/min; Globulin 3.5 g/dL (2.2-4.2); Glucose 100 mg/dL (74-106); LDH 215 U/L (84-246); Potassium 3.6 mmol/L (3.5-5.1); Protein, Total 5.8 g/dL (6.4-8.2); Sodium Level 140 mmol/L (136-145); Troponin-I HS (w/2H Reflex) 6 pg/mL (3.0-54.0)
[2022-07-07 06:41] LABS: Bacteria RARE /hpf (None Seen); Red Blood Cells-Urine 0-5 SEEN /hpf (0-5); Squamous Epithelial Cells - UA 0-5 SEEN /hpf (5-10); White Blood Cells 0-5 SEEN /hpf (0-5)
[2022-07-07 06:51] LABS: Creatinine, Urine (random) < 13.00 mg/dL (NO RANGE EST.); Protein, Urine (Random) 9.7 mg/dL (<11.9)
--- NOTE | 2022-07-07 06:51 | NURSING ---
NO OLD EKGS
[2022-07-07 06:58] VITALS: BP 133/87; PULSE 105; RESP 16; O2SAT 95
[2022-07-07 08:10] LABS: Reflex Troponin-HS? (from REC) Y
[2022-07-07 08:32] VITALS: BP 119/85; PULSE 85; RESP 17; O2SAT 97
[2022-07-07 08:46] LABS: Troponin-I HS 10 pg/mL (3.0-54.0)
--- NOTE | 2022-07-07 09:01 | EDS_ITS ---
HPI History of Present Illness Chief Complaint: Hypertension [facility] Medical History Anxiety Asthma Depression Factor 5 Leiden mutation, heterozygous hemorrhage Subchorionic hematoma in first trimester Home Medications albuterol 90 mcg/actuation aerosol inhaler 2 mcg inhalation Q4H PRN difficulty breathing 07/02/22 [History Last Taken 07/01/22 23:30] acetaminophen 500 mg tablet 1,000 mg PO Q6 #0 tabs 07/04/22 [Rx Last Taken Unknown] enoxaparin 40 mg/0.4 mL subcutaneous syringe 0.4 mg subcut BID 07/07/22 [History Last Taken Unknown] Allergy/AdvReac Type Severity Reaction Status Date / Time shrimp Allergy Anaphylaxis Verified 07/02/22 09:23 Surgical History (Updated 06/26/22 @ 10:[address] Matlide Cuellar MD) History of Social History Smoking Status: Never smoker EXAM Physical Exam Const Vital Signs: 07/07/22 05:58 07/07/22 06:04 07/07/22 06:33 Temperature 99 F Temperature Source Temporal Pulse Rate 98 99 93 Respiratory Rate 20 H 20 H 16 Blood Pressure 117/93 H 118/80 128/85 H Blood Pressure Mean 101 92 99 Pulse Ox 98 98 98 Oxygen Delivery Method Room Air Room Air Room Air 07/07/22 06:58 07/07/22 08:32 Temperature Temperature Source Pulse Rate 105 H 85 Respiratory Rate 16 17 Blood Pressure 133/87 H 119/85 H Blood Pressure Mean 102 96 Pulse Ox 95 97 Oxygen Delivery Method Room Air Room Air [facility] MDM Lab Data Labs: Laboratory Results - last 24 hr 07/07/22 07/07/22 07/07/22 06:08 06:08 06:20 WBC 7.2 RBC 3.02 L Hgb 9.1 L Hct 27.6 L MCV 91.4 MCH 30.1 MCHC 33.0 RDW Std Deviation 46.8 H RDW Coeff of Arti 14.1 Plt Count 157 MPV 11.1 Immature Gran % (Auto) 1.900 H Neut % (Auto) 67.1 Lymph % (Auto) 22.1 [place] % (Auto) 6.5 Eos % (Auto) 2.1 Baso % (Auto) 0.3 Absolute Neuts (auto) 4.8 Absolute Lymphs (auto) 1.59 Nucleated RBC % 0 Sodium 140 Potassium 3.6 Chloride 108 H Carbon Dioxide 23.0 Anion Gap 9 BUN 11 Creatinine 0.64 Estim Creat Clear Calc 90.82 Est GFR (MDRD) Af Amer 133 Est GFR (MDRD) Non-Af 110 BUN/Creatinine Ratio 17.1 Glucose 100 Calcium 8.2 L Total Bilirubin 0.40 AST 66 H ALT 80 H Alkaline Phosphatase 75 Lactate Dehydrogenase 215 Troponin I High Sens 6 Total Protein 5.8 L Albumin 2.3 L Globulin 3.5 Albumin/Globulin Ratio 0.7 L Urine Color Yellow Urine Clarity Clear Urine pH 7.0 Ur Specific [place] 1.010 Urine Protein Negative Urine Glucose (UA) Normal Urine Ketones Negative Urine Occult Blood 250 H Urine Nitrite Negative Urine Bilirubin Negative Urine Urobilinogen Normal Ur Leukocyte Esterase 25 H Urine RBC 0-5 SEEN Urine WBC 0-5 SEEN Ur Squamous Epith Cells 0-5 SEEN Urine Bacteria RARE Urine Mucus 0 SEEN U Random Total Protein Urine Creatinine Protein/Creatinin Ratio 07/07/22 07/07/22 06:20 08:15 WBC RBC Hgb Hct MCV MCH MCHC RDW Std Deviation RDW Coeff of Arti Plt Count MPV Immature Gran % (Auto) Neut % (Auto) Lymph % (Auto) [place] % (Auto) Eos % (Auto) Baso % (Auto) Absolute Neuts (auto) Absolute Lymphs (auto) Nucleated RBC % Sodium Potassium Chloride Carbon Dioxide Anion Gap BUN Creatinine Estim Creat Clear Calc Est GFR (MDRD) Af Amer Est GFR (MDRD) Non-Af BUN/Creatinine Ratio Glucose Calcium Total Bilirubin AST ALT Alkaline Phosphatase Lactate Dehydrogenase Troponin I High Sens 10 Total Protein Albumin Globulin Albumin/Globulin Ratio Urine Color Urine Clarity Urine pH Ur Specific [place] Urine Protein Urine Glucose (UA) Urine Ketones Urine Occult Blood Urine Nitrite Urine Bilirubin Urine Urobilinogen Ur Leukocyte Esterase Urine RBC Urine WBC Ur Squamous Epith Cells Urine Bacteria Urine Mucus U Random Total Protein 9.7 Urine Creatinine < 13.00 Protein/Creatinin Ratio TNP Rhythm Strip Rhythm Strip: Sinus Rhythm Rate: 90 Ectopy: None Treatment and Re-Evaluation Narrative: Care of the patient was turned over to me pending repeat troponin. This was obtained and was within normal limits at 10. Previous high-sensitivity troponin was normal at 6. This is not a substantial increase. Patient feels better on reevaluation. 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 Patient understood and was agreeable with the plan. All questions were answered. Discharge Plan Triage Chief Complaint: Hypertension ED Provider: Jerome Davila Dx/Rx/DC Orders Clinical Impression: Unspecified hypertension, condition or complication, Episode of hypertension, edema, Chest pain of uncertain etiology Instructions: ED Chest Pain, Uncertain Cause Prescriptions: No Action albuterol 90 mcg/actuation Aerosol 2 mcg INHALATION Q4H PRN (Reason: difficulty breathing) Rx Instructions: 2 puffs as needed acetaminophen 500 mg Tablet 1,000 mg PO Q6 Qty: 0 0RF enoxaparin 40 mg/0.4 mL syringe 0.4 mg subcut BID Label Comments: INJECT 0.4ML UNDER THE SKIN EVERY 12 HOURS Primary Care Provider: Jairo Skinner Referrals: Matilde Cuellar MD [Med Staff - Active Staff] - Disposition Disposition: Home, Self Care
== END 2022-07-07 09:23 | disposition home or self-care (01) ==
PROVIDERS: Emergency Provider Emergency Medicine; PCP Family Medicine; Visit Provider Emergency Medicine
DX: O90.89 Other complications of the puerperium, not elsewhere classified (principal); O16.5 Unspecified maternal hypertension, complicating the puerperium; O99.893 Other specified diseases and conditions complicating puerperium; R07.9 Chest pain, unspecified; N90.89 Other specified noninflammatory disorders of vulva and perineum
CPT/HCPCS: 80053; 81001; 82570; 83615; 84156; 84484; 85025; 93005; 99285; A4216

== ENCOUNTER 2023-11-03 19:58 | Emergency (ER) | payer OTHER, SELFPAY ==
[2023-11-03 19:59] VITALS: BP 131/105; PULSE 82; RESP 16; TEMP 36.4; O2SAT 100; BMI 36.3
--- NOTE | 2023-11-03 22:12 | EX.ED.DYSGE1 ---
HPI History of Present Illness Chief Complaint: Allergic Reaction Informant: patient Narrative Narrative: 38-year-old female presenting to the emergency room out of concern for insect bite to the left forearm. Patient states that yesterday during the clips she sat down on a chair and felt something sting her left medial proximal forearm. She states now she has an area of erythema warmth and mild tenderness. She talked her primary care doctor was sent in for evaluation. She notes she is leaving tomorrow for vacation in [place]. She has tried some home remedies with salve without relief. She denies any fevers. No prior anaphylactic reactions. [facility] Medical History Anxiety Asthma Depression Factor 5 Leiden mutation, heterozygous hemorrhage Subchorionic hematoma in first trimester Home Medications albuterol 90 mcg/actuation aerosol inhaler 2 mcg inhalation Q4H PRN difficulty breathing 07/02/22 [History Last Taken 07/01/22 23:30] multivitamin 1 tab PO DAILY 05/12/23 [History Last Taken Unknown] Allergy/AdvReac Type Severity Reaction Status Date / Time shrimp Allergy Anaphylaxis Verified 11/03/23 19:58 Family History Mother Bleeding disorder Son Bleeding disorder Surgical History History of Previous delivery affecting Social History Smoking Status: Never smoker alcohol intake: never substance use type: does not use ROS ROS ED Constitutional Constitutional ED: Denies chills or weight loss Eyes Eyes: Denies change in vision or diplopia ENT ENT ED: Denies ear pain, rhinorrhea or sore throat Cardiovascular Cardiovascular: Denies chest pain, orthopnea, palpitations or racing heartbeat Respiratory/Chest Respiratory/Chest: Denies cough, dyspnea or orthopnea Gastrointestinal Gastrointestinal: Denies abdominal pain, diarrhea, nausea or vomiting Genitourinary Genitourinary ED: Denies dysuria, hematuria or urinary frequency Musculoskeletal Musculoskeletal: Reports other Details: See history of present illness ; Denies arthralgias or myalgias Integumentary Reports rash; Denies abscess Neurologic Neurologic: Denies headache(s) or weakness Psychiatric Psychiatric: Denies anxiety, depression, suicidal ideation or suicidal thoughts Endocrine Endocrinology: Denies polydipsia, polyphagia or polyuria Allergic/Immunologic Allergic/Immunologic ED: Denies mouth swelling, tongue swelling or urticaria EXAM Physical Exam Const Vital Signs: 11/03/23 19:59 11/03/23 22:20 Temperature 97.5 F L 97.9 F Temperature Source Temporal Pulse Rate 82 84 Respiratory Rate 16 16 Blood Pressure 131/105 H 123/78 H Blood Pressure Mean 113 93 Pulse Ox 100 98 Positive well nourished and well developed General Appearance ED: well developed HEENT Reports normocephalic, head/scalp atraumatic and moist mucous membranes Eyes PERRL and EOMs intact bilaterally Neck no lymphadenopathy, supple and no JVD Resp normal respiratory effort and clear to auscultation bilaterally Cardio regular rate, regular rhythm and no murmurs GI normal to inspection, nondistended, normoactive bowel sounds and non-tender Palpation: soft Back/Spine no CVA tenderness and normal ROM Extremity Extremity Narrative: Left forearm demonstrates a roughly 15 cm x 8 cm area erythema of the proximal medial left forearm. There is some mild increased warmth. It blanches. Slightly urticarial in nature. No lymphangitic streaking. No extension towards the hand. The ring on the left ring finger is still loose. There is a central area of about 3 mm where there appears to have been some type of sting/bite. Does not appear abscessed or pustular in nature. Neuro oriented x3 and CN's II-XII intact bilaterally Sensorium / Orientation: alert Motor Exam: strength 5/5 throughout Psych mental status grossly normal Mood & Affect: Negative for depressed or tearful Skin no rashes or lesions noted and no wounds MDM MDM MDM Narrative Medical decision making narrative: Differential diagnosis includes but not limited to cellulitis local reaction retained stinger abscess. Clinically this appears to be more of a local reaction to insect sting. We talked about different treatment options in light of her travel to [place] for vacation. Using shared decision making we will administer a dose of Kenalog. She should use some topical Benadryl cream which she has heavy sedation with oral Benadryl. Would recommend continued monitoring. She was explicitly advised to monitor any hand swelling in case the swelling became tight on her rings. Would encourage her to go ahead and remove them. Follow-up as needed return if worsening Discharge Plan Triage Chief Complaint: Allergic Reaction ED Provider: Amilcar Montero Dx/Rx/DC Orders Clinical Impression: Local reaction to insect sting Instructions: ED Insect Sting, Local Reaction Prescriptions: No Action multivitamin Tablet 1 tab PO DAILY albuterol 90 mcg/actuation Aerosol 2 mcg INHALATION Q4H PRN (Reason: difficulty breathing) Rx Instructions: 2 puffs as needed Primary Care Provider: Jairo Skinner Referrals: Jairo Skinner MD [Primary Care Provider] - As Needed Activity Restrictions/Additional Instructions: I recommend topical Benadryl cream. Ice as needed for swelling and itching Monitor for worsening symptoms return if needed. Disposition Disposition: Home, Self Care Discharge Date/Time: 11/03/23 22:23
[2023-11-03] MEDS: Triamcinolone Acetonide 40 MG/ML Vial 80 MG IM (22:18)
[2023-11-03 22:20] VITALS: BP 123/78; PULSE 84; RESP 16; TEMP 36.6; O2SAT 98
== END 2023-11-03 22:23 | disposition home or self-care (01) ==
PROVIDERS: Emergency Provider Emergency Medicine; PCP Family Medicine; Visit Provider Emergency Medicine
DX: T78.49XA Other allergy, initial encounter (principal); J45.909 Unspecified asthma, uncomplicated; S50.862A Insect bite (nonvenomous) of left forearm, initial encounter; W57.XXXA Bitten or stung by nonvenomous insect and other nonvenomous arthropods, initial encounter
CPT/HCPCS: 96372; 99283

== ENCOUNTER → 2024-01-05 | Outpatient (CLI) | payer OTHER, SELFPAY ==
--- NOTE | 2024-01-05 16:14 | RAD_ITS ---
INDICATION: asthma EXAMINATION/TECHNIQUE: X-RAY - XR Chest 2 Views COMPARISON: Prior study dated: 10/18/2021 FINDINGS: LINES/DEVICES: None. LUNGS: The lungs are well expanded. No consolidation, edema or effusion. No pneumothorax. MEDIASTINUM AND CARDIOVASCULAR STRUCTURES: Cardiac silhouette not enlarged. Central airways and mediastinal contour are unremarkable. BONES AND SOFT TISSUES: No acute abnormality. RAD/Chest PA and Lateral IMPRESSION: No acute pulmonary finding. Electronically Signed: Elliott Dent MD at 4:48 EDT ,
[2024-01-05 17:40] LABS: Absolute Lymphocyte Count 1.98 X10^3/uL (0.83-4.51); Absolute Neutrophil Count 3.8 X10^3/uL (2.0-7.7); Basophil# 0.06 X10^3/uL; Basophil% 0.9 % (0-1); Eosinophil# 0.27 X10^3/uL; Hematocrit 45.5 % (37-47); Hemoglobin 15.1 g/dL (12.0-15.0); Lymphocyte # 1.98 X10^3/ul (0.83-4.51); Lymphocyte % 29.4 % (19-41); Mean Corp Hgb Conc 33.2 g/dL (32-36); Mean Corpuscular Hgb 29.5 pg (27.0-32.0); Mean Corpuscular Volume 88.9 fL (81-99); Monocyte# 0.58 X10^3/uL; Monocyte% 8.6 % (0-10); NRBC Flagged by Analyzer 0 % (0-5); Neutrophil # 3.82 X10^3/uL (2.7-7.7); Neutrophil % 56.7 % (47-70); Platelet Count 215 K/mm3 (150-450); RBC Distribution Width SD 39.3 fl (35.1-43.9); Red Blood Count 5.12 M/mm3 (4.2-5.4); White Blood Count 6.7 K/mm3 (4.4-11.0)
[2024-01-05 18:03] LABS: CRP 3.25 mg/L (0.0-3.0)
[2024-01-05 19:28] LABS: Rheumatoid Factor 14.4 IU/mL (<15)
== END | disposition home or self-care (01) ==
LOC: MTRAD 16:14
PROVIDERS: PCP Family Medicine; Referring Provider Family Medicine; Visit Provider Family Medicine
DX: R06.02 Shortness of breath (principal)
CPT/HCPCS: 36415; 71046; 85025; 86140; 86431